=== PATIENT | female | born 1955 | race Caucasian/White ===

== ENCOUNTER → 2023-06-22 | Outpatient (CLI) | payer MEDICARE, OTHER | LOC: M CARPUL 07:50 | PROVIDERS: ATTEND Internal Medicine | DX: R06.02 Shortness of breath (principal); I08.1 Rheumatic disorders of both mitral and tricuspid valves; I31.39 Other pericardial effusion (noninflammatory) ==

== ENCOUNTER → 2023-07-05 | Outpatient (REF) | payer OTHER, MEDICARE ==
[2023-07-05 17:26] LABS: RSV AMPLIFICATION POSITIVE (NEGATIVE)
== END ==
LOC: M LAB REF 16:07
PROVIDERS: ATTEND Internal Medicine
DX: R05.9 Cough, unspecified (principal)